=== PATIENT | male | born 1995 | race African-American/Black ===

== ENCOUNTER 2020-07-29 10:28 | Inpatient (IN) | payer OTHER ==
[~2020-07-29] VITALS: Ht 182.9 cm; Wt 90.7 kg
--- NOTE | ~2020-07-29 | OP ---
[address] [address] OPERATIVE REPORT Name: FELICIA MALDONADO Room: [address] IN [facility]#: [id number] Admission: 07/29/20 Attend Phys: Ousmane Robison MD Discharge: Date of : 89 Report #: [id number] THIS REPORT FOR: cc: ARCELIA - No family physician/PCP FAM - No family physician/PCP ~ Ousmane Robison MD DATE OF SERVICE: 07/29/2020 PREOPERATIVE DIAGNOSIS: Acute appendicitis. POSTOPERATIVE DIAGNOSIS: Acute appendicitis. OPERATIVE PROCEDURE DONE: Laparoscopic appendectomy. OPERATING SURGEON: Ousmane Robison MD INDICATIONS FOR THE PROCEDURE: The patient is a 25-year-old male who presented with complaints of 1-day history of mid and upper abdominal pain. Clinical exam and CT scan showed features of acute appendicitis. The patient was advised laparoscopic appendectomy. The patient showed understanding and agreed to proceed. DESCRIPTION OF PROCEDURE: After explaining to the patient in detail and informed consent was obtained, the patient was identified in the preoperative holding area. The patient was transferred to the operating room and was placed in supine position. Sequential compressive devices were placed for DVT prophylaxis. Preoperative antibiotics were given. After induction of anesthesia, the abdomen was prepped and draped in a sterile fashion. Through a left upper quadrant stab incision and using Veress needle technique, pneumoperitoneum was created. Thereafter, through a 1 cm incision in the left lower quadrant and using Optiview technique, peritoneal cavity was entered and pneumoperitoneum was continued through a 2 cm supraumbilical incision. Another 12 mm trocar was placed, and another 5 mm trocar was placed through a suprapubic incision approximately about 3 cm above the pubic symphysis. On initial inspection, the patient was noted to have features of acute appendicitis. A window was created in the mesoappendix at the base, and appendix was divided using a stapler. Endo-ESDRAS white load was used to divide the mesoappendix. Appendix was then retrieved using an EndoCatch. Thorough saline irrigation was given. Absolute hemostasis was ensured. The 12 mm port site incision was closed with 0 Vicryl, for the facial skin was closed with 4-0 Monocryl, for all the incisions, Dermabond was applied. The patient was stable at the end of the procedure. The patient was awoken from anesthesia and was transferred to the recovery room in stable condition. ESTIMATED BLOOD LOSS: [place] [address] OPERATIVE REPORT Name: JOELFELICIAJENIFFER CAMPOS Room: [address]#: [id number] Admission: 07/29/20 Attend Phys: Oumsane Robison MD Discharge: Date of : [birth year] Report #: [id number] CONDITION OF THE PATIENT: Stable. FLUIDS GIVEN: Per anesthesia notes. SPECIMEN SENT: Appendix. COMPLICATIONS: None. ANESTHESIA: General anesthesia. By: 1438 1912Sdeena Robison MD /jameson
--- NOTE | ~2020-07-29 | PROC ---
[address] [address] PROCEDURE REPORT Name: FELICIA MALDONADO Room: [address] IN ..#: [id number] Admission: 07/29/20 Attend Phys: Ousmane Robison MD Discharge: Date of : 95 Report #: [id number] THIS REPORT FOR: cc: FAM - No family physician/PCP FAM - No family physician/PCP [facility],Medical Records Staff ~ For GI report, please see the Provation report in Perceptive 7 content. By: 1129Medical Records Staff REKHA /THAI
[2020-07-29 10:31] VITALS: BP 158/91
[2020-07-29 10:58] LABS: ABSOLUTE BASOPHILS 0.1 thou/uL (0.0-0.2); ABSOLUTE EOSINOPHILS 0.1 thou/uL (0.0-0.7); ABSOLUTE LYMPHOCYTES 1.5 thou/uL (0.8-5.3); ABSOLUTE MONOCYTES 0.7 thou/uL (0.0-1.2); ABSOLUTE NEUTROPHILS 11.2 thou/uL (1.6-8.1); BASOPHILS 0.6 %; EOSINOPHILS 0.4 %; HEMATOCRIT 44.3 % (42.0-52.0); HEMOGLOBIN 14.5 gm/dL (14.0-18.0); LYMPHOCYTES 11.1 %; MCH 28.4 pg (26.0-34.0); MCHC 32.7 g/dL (28.0-37.0); MPV 7.2 fl. (7.2-11.1); NUCLEATED RBCS 0 /100WBC; PLATELET COUNT* 264 thou/uL (150-400); POLYS 82.9 %; RBC 5.09 mil/uL (4.50-6.00); RDW-CV 13.9 % (10.5-14.5); WBC 13.5 thou/uL (4.0-11.0)
[2020-07-29 11:06] LABS: CALCIUM 9.2 mg/dL (8.5-10.1); POTASSIUM 3.9 mmol/L (3.5-5.1)
[2020-07-29 11:10] LABS: ALBUMIN 4.1 g/dL (3.4-5.0); TOTAL BILIRUBIN 0.4 mg/dL (<0.1-1.0); TOTAL PROTEIN 8.2 g/dL (6.4-8.2)
[2020-07-29 12:30] VITALS: BP 154/88
[2020-07-29 15:40] VITALS: BP 134/94
--- NOTE | 2020-07-29 16:45 | EKG ---
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 : 1995 Requested By: Jerzy Jo Order Number: [id number] MD: Adarsh Millan Measurements Intervals Richards Rate: 69 P: 4 ME: 220 QRS: 23 QRSD: 92 T: 27 QT: 408 QTc: 437 Interpretive Statements Sinus rhythm Prolonged ME interval Probable left atrial enlargement RSR' in V1 or V2, right VCD or RVH ST elev, probable normal early repol pattern Baseline wander in lead(s) I,II,aVR,V5 No previous ECG available for comparison Electronically Signed On 07-29-2020 16:45:15 CDT by Adarsh Millan [email or web address] <ELECTRONICALLY SIGNED> By: Adarsh Millan MD, [facility] 07/29/20 1645 1036 1036 Adarsh Millan MD, [facility] /EPI
[2020-07-29 19:30] VITALS: BP 129/73
[2020-07-29 23:51] VITALS: BP 139/83
[2020-07-30 04:08] VITALS: BP 151/95
[2020-07-30 04:15] LABS: ALBUMIN 3.6 g/dL (3.4-5.0); CALCIUM 8.7 mg/dL (8.5-10.1); POTASSIUM 3.8 mmol/L (3.5-5.1); TOTAL BILIRUBIN 0.4 mg/dL (<0.1-1.0); TOTAL PROTEIN 7.5 g/dL (6.4-8.2)
[2020-07-30 04:30] LABS: HEMATOCRIT 40.6 % (42.0-52.0); HEMOGLOBIN 13.2 gm/dL (14.0-18.0); MCH 28.3 pg (26.0-34.0); MCHC 32.6 g/dL (28.0-37.0); MPV 7.8 fl. (7.2-11.1); RBC 4.67 mil/uL (4.50-6.00); RDW-CV 14.1 % (10.5-14.5); WBC 15.8 thou/uL (4.0-11.0)
[2020-07-30 06:30] LABS: ABSOLUTE LYMPHOCYTES 1.7 thou/uL (0.8-5.3); MCV 87.5 fL (80.0-100.0); NUCLEATED RBCS 0 /100WBC
[2020-07-30 06:39] LABS: ABSOLUTE BASOPHILS 0.1 thou/uL (0.0-0.2); ABSOLUTE MONOCYTES 0.8 thou/uL (0.0-1.2); ABSOLUTE NEUTROPHILS 13.5 thou/uL (1.6-8.1); BASOPHILS 0.4 %; EOSINOPHILS 0.1 %; HEMATOCRIT 41.2 % (42.0-52.0); HEMOGLOBIN 13.5 gm/dL (14.0-18.0); LYMPHOCYTES 10.7 %; MCH 28.7 pg (26.0-34.0); MCHC 32.8 g/dL (28.0-37.0); MONOCYTES 4.9 %; MPV 7.9 fl. (7.2-11.1); PLATELET COUNT* 292 thou/uL (150-400); POLYS 83.9 %; RDW-CV 13.9 % (10.5-14.5); WBC 16.1 thou/uL (4.0-11.0)
[2020-07-30 07:07] LABS: ALBUMIN 3.7 g/dL (3.4-5.0); CALCIUM 9.1 mg/dL (8.5-10.1); POTASSIUM 3.8 mmol/L (3.5-5.1); TOTAL BILIRUBIN 0.4 mg/dL (<0.1-1.0); TOTAL PROTEIN 7.7 g/dL (6.4-8.2)
[2020-07-30 07:35] VITALS: BP 148/102
[2020-07-30 09:21] VITALS: BP 148/102
[2020-07-30 09:30] VITALS: BP 148/102
[2020-07-30 14:15] VITALS: BP 137/85
[2020-07-30 16:54] VITALS: BP 136/88
[2020-07-31 00:07] VITALS: BP 149/91
[2020-07-31 04:31] VITALS: BP 172/90
[2020-07-31 08:25] VITALS: BP 165/103
[2020-07-31 12:59] LABS: ABSOLUTE BASOPHILS 0.1 thou/uL (0.0-0.2); ABSOLUTE EOSINOPHILS 0.1 thou/uL (0.0-0.7); ABSOLUTE LYMPHOCYTES 2.6 thou/uL (0.8-5.3); ABSOLUTE MONOCYTES 0.8 thou/uL (0.0-1.2); ABSOLUTE NEUTROPHILS 5.9 thou/uL (1.6-8.1); BASOPHILS 0.9 %; EOSINOPHILS 0.8 %; HEMATOCRIT 41.2 % (42.0-52.0); HEMOGLOBIN 13.7 gm/dL (14.0-18.0); LYMPHOCYTES 27.4 %; MCH 28.6 pg (26.0-34.0); MCHC 33.3 g/dL (28.0-37.0); MCV 85.8 fL (80.0-100.0); MONOCYTES 8.3 %; MPV 7.2 fl. (7.2-11.1); NUCLEATED RBCS 0 /100WBC; PLATELET COUNT* 294 thou/uL (150-400); POLYS 62.6 %; RDW-CV 13.6 % (10.5-14.5); WBC 9.3 thou/uL (4.0-11.0)
[2020-07-31 13:10] LABS: ALBUMIN 3.6 g/dL (3.4-5.0); CALCIUM 8.5 mg/dL (8.5-10.1); CREATININE 1.1 mg/dL (0.6-1.3); POTASSIUM 3.4 mmol/L (3.5-5.1); TOTAL BILIRUBIN 0.5 mg/dL (<0.1-1.0); TOTAL PROTEIN 7.4 g/dL (6.4-8.2)
[2020-07-31 15:29] VITALS: BP 117/67
[2020-07-31 15:30] VITALS: BP 132/88
[2020-07-31 20:20] VITALS: BP 132/88
--- NOTE | 2020-08-01 11:33 | PATH ---
[address] [address] PATHOLOGY RPT PROCEDURE Name: JOELFELICIAJENIFFER CAMPOS Room: [address] IN ..#: [id number] Admission: 07/29/20 Date of : [birth year] Discharge: 07/31/20 Report #: [id number] Path Case #: [id number] [facility] Accession Number: [id number] . 01 Material submitted: . appendix - APPENDIX . 02 Diagnosis: Appendix: - Acute appendicitis, periappendicitis and serositis. (MEHREEN:anant; 07/31/2020) [facility] 07/31/2020 1612 Local . 02 Electronically signed: . Tonny Duron MD, Pathologist NPI- [id number] . 01 Gross description: . Fixative: Formalin Labeled: Appendix Appendix length: 6.7 cm Appendix diameter: Up to 1.0 cm Mesoappendix: 2.4 cm Proximal margin: Stapled; david are removed and margin is inked black Serosa: [place]-huff, glistening with a slight amount of overlying exudate, as well as moderate vasculature Cut surface: Pinpoint to dilated lumen filled with fecal material Luminal diameter: Up to 0.5 cm Perforation: Not identified Lesions/abnormalities: None identified . Proximal margin and bisected tip in cassette A1. Additional outside industrial sales representative cross-sections in cassette A2. (CAA; 07/30/2020) QAC/QAC 07/30/2020 [facility]4 Local . 02 Pathologist provided ICD-10: K35.80 . 02 CPT . 254468 Specimen Comment: A courtesy copy of this report has been sent to [phone] Specimen Comment: Report sent to Specimen Comment: A duplicate report has been generated due to demographic updates. Performed at: [id number] [place] [address] PATHOLOGY RPT PROCEDURE Name: FELICIA MALDONADO Room: [address] [facility]#: [id number] Admission: 07/29/20 Date of : [birth year] Discharge: 07/31/20 Report #: [id number] Path Case #: [id number] MD Evans Addison MD Phone: [phone] Performed at: 02 [facility] [address], [place], [place] [id number] MD Tonny Duron MD Phone: [phone]
== END 2020-07-31 18:45 | disposition left against medical advice (07) | DRG 342 ==
LOC: M.ERS 10:28 → M.TBA-ER 11:56 → M.ORTHSURG 15:28
PROVIDERS: Family Medicine; Internal Medicine Gastroenterology; ADMIT Surgery; ATTEND Surgery
PROC: 0DTJ4ZZ Resection of Appendix, Percutaneous Endoscopic Approach (ICD-10-PCS; 2020-07-29)
PROC: 0DJ08ZZ Inspection of Upper Intestinal Tract, Via Natural or Artificial Opening Endoscopic (ICD-10-PCS; principal; 2020-07-30)
DX: K35.80 Unspecified acute appendicitis (principal); K92.0 Hematemesis; K31.89 Other diseases of stomach and duodenum; F12.90 Cannabis use, unspecified, uncomplicated; Z20.822 Contact with and (suspected) exposure to COVID-19; Z53.21 Procedure and treatment not carried out due to patient leaving prior to being seen by health care provider